=== PATIENT | female | born 1955 | race Caucasian/White ===

== ENCOUNTER 2016-08-31 14:44 | Emergency (ER) | payer OTHER, MEDICARE ==
[~2016-08-31] VITALS: Ht 172.7 cm; Wt 60.8 kg
[~2016-08-31 14:44] MED LIST: B12INJ IM; BENICAR20 MG PO; COUMADIN 10MG T10 M1 PO; COUMADIN 5 MG TA5 M1 PO; COUMADIN7.5 MG PO; CYANOCOBAL1000 MCG/1 IM; DIAZEPAM 5 MG5 M1 PO; DIGITEK125 MCG PO; ENDOCET 5-3251 EACH PO; EXCEDRIN CAPLE1 EACH PO; HYDROCODON-ACE1 EAC7; HYDROCODONE-AP1 EA10 PO; HYDROCODONE-AP1 EACH PO; LANOXIN 0.120.125 M1 PG; LEXAPRO 10 MG T10 M2 PO; LEXAPRO 10 MG T10 MG PO; LOPRESSOR25 PO; METOPROLOL SUCC25 M1 PO; NORCO 10-325 T1 EACH PO; NORCO 5-325 TA1 EACH PO; OXYBUTYNIN 5 MG5 M2 PO; OXYCODONE HCL20 M1 PO; OXYCODONE-ACET1 EAC2 PO; PEPCID40 MG PO; PERCOCET 10-321 EACH PO; PERCOCET 5-3251 EACH PO; PHENADOZ25 MG PO; PHENERGAN 25 MG25 M1 PO; PINDOLOL PO; PINDOLOL10 MG; PINDOLOL10 MG PO; PROTONIX40 M1 PO; PROTONIX40 M2 PO; RESTORIL15 MG PO; STOOL SOFTENER1 EAC2 PO; TOPROL XL25 MG PO; TOPROL XL50 MG; TOPROL XL50 MG PO; TRIAMTERENE-HC1 EAC1 PO; ZOLOFT; ZOLOFT50 MG PO
[2016-08-31] MEDS ORDERED: TRAZODONE HCL50 MG PO (14:53)
[2016-08-31 16:09] VITALS: BP 131/69
== END 2016-08-31 16:09 | disposition home or self-care (01) ==
LOC: ER 14:44
DX: S09.90XA Unspecified injury of head, initial encounter (principal); W20.8XXA Other cause of strike by thrown, projected or falling object, initial encounter; K21.9 Gastro-esophageal reflux disease without esophagitis; I48.91 Unspecified atrial fibrillation; I10 Essential (primary) hypertension; Z85.841 Personal history of malignant neoplasm of brain; Z90.710 Acquired absence of both cervix and uterus; Y93.89 Activity, other specified; Y92.89 Other specified places as the place of occurrence of the external cause; Y99.9 Unspecified external cause status

== ENCOUNTER → 2016-10-09 | Outpatient (CLI) | payer OTHER, MEDICARE ==
[~2016-10-09] MED LIST changes: +TRAZODONE HCL50 MG PO
== END ==
LOC: RAD 11:06
DX: Z12.31 Encounter for screening mammogram for malignant neoplasm of breast (principal)

== ENCOUNTER → 2016-11-23 | Outpatient (CLI) | payer OTHER, MEDICARE | LOC: MRI 12:37 | DX: R90.82 White matter disease, unspecified (principal) ==

== ENCOUNTER 2016-12-29 11:10 | Emergency (ER) | payer OTHER, MEDICARE ==
[~2016-12-29] VITALS: Ht 172.7 cm; Wt 59.0 kg
[2016-12-29 11:47] LABS: HEMATOCRIT 35.9 % (37.0-47.0); HEMOGLOBIN 12.2 gm/dL (12.0-15.0); MCH 33.9 pg (26.0-34.0); MCV 99.6 fL (80.0-100.0); RBC 3.6 mil/uL (4.20-5.00); RDW 13.1 % (10.5-14.5); WBC 3.2 thou/uL (4.0-11.0)
[2016-12-29 11:55] LABS: CALCIUM 8.5 mg/dL (8.5-10.1); CREATININE 0.7 mg/dL (0.6-1.0); POTASSIUM 4.9 mmol/L (3.5-5.1)
[2016-12-29 11:56] LABS: INR 1.7; PROTIME 16.8 Seconds (9.3-11.4)
[2016-12-29] MEDS ORDERED: ACETAMINOPHEN-1 EAC1 PO (12:43)
[2016-12-29 13:00] VITALS: BP 122/79
== END 2016-12-29 13:01 | disposition home or self-care (01) ==
LOC: ER 11:10
PROVIDERS: Emergency Medicine
DX: R51 Headache (principal); I48.91 Unspecified atrial fibrillation; K21.9 Gastro-esophageal reflux disease without esophagitis; I10 Essential (primary) hypertension; F10.99 Alcohol use, unspecified with unspecified alcohol-induced disorder; Z90.710 Acquired absence of both cervix and uterus; Z86.718 Personal history of other venous thrombosis and embolism; Z85.841 Personal history of malignant neoplasm of brain

== ENCOUNTER → 2017-03-13 | Outpatient (CLI) | payer OTHER, MEDICARE ==
[~2017-03-13] VITALS: Ht 172.7 cm; Wt 59.9 kg
[~2017-03-13] MED LIST changes: +ACETAMINOPHEN-1 EAC1 PO; +EXCEDRIN MIGRA1 EAC1 PO; +HYDROCODON-ACE1 EAC5 PO; +LEVSIN0.125 MG PO; +MILK OF MA2400 MG/10 PO; +MIRALAX17 GM PO; +MYRBETRIQ50 MG PO
--- NOTE | ~2017-03-13 | P ---
[facility] [place] [address] PROCEDURE REPORT Name: DEYANIRA MOJICA Room #: REG [facility]#: [id number] Admission: 03/13/17 Attend Phys: Owen Lopez Discharge: Date of : 55 Report #: [id number] THIS REPORT FOR: //name// CC: Owen Weinberg MD DATE OF SERVICE: 03/13/2017 PROCEDURE PERFORMED: Upper endoscopy with biopsies and esophageal dilation. HISTORY OF PRESENT ILLNESS: The patient is a 61-year-old female with dysphagia and gastroesophageal reflux disease. She takes Protonix on a daily basis. In general this controls her heartburn symptoms. She also has a history of anemia, hemoglobin was in the 9 range in June of this year with a low iron. Plan is for EGD and colonoscopy today. DESCRIPTION OF PROCEDURE: The risks and benefits of the procedure were explained to the patient, those risks including but not limited to bleeding, perforation, the risk of sedation. She understood these risks and gave informed consent. Sedation was given using propofol per anesthesia. Next, using a standard [employer] upper endoscope, the scope was placed in the patient's mouth and advanced under direct vision through the esophagus, stomach and into the second portion of the duodenum. The larynx was normal in appearance. The esophagus was normal throughout. The GE junction was normal. No evidence of stricture or narrowing. Upon entering the stomach, a small hiatal hernia was noted. Overall, the gastric mucosa was normal. The pylorus was normal and patent. The duodenal bulb, first and second portion were normal. Biopsies of the duodenum were obtained due to history of anemia. Next, the scope was then brought back up into the patient's stomach and a Savary guidewire was inserted through the scope, leaving the guidewire in place as the scope was then withdrawn. Next, a 48-[place] Savary dilation of the esophagus was performed without difficulty. Next, the wire and dilator removed. The scope was reintroduced into the patient's stomach. There was no evidence of mucosal tear after dilation. Next, the scope was then withdrawn and the procedure terminated. The patient tolerated the procedure well. IMPRESSION: 1. Small hiatal hernia. 2. Otherwise, normal upper endoscopy. RECOMMENDATIONS: 1. Await biopsy results. 2. Observe the patient status post dilation. 3. Continue daily proton pump inhibitor therapy. [address] [address] PROCEDURE REPORT Name: DEYANIRA MOJICA Room #: REG [facility]#: [id number] Admission: 03/13/17 Attend Phys: Owen Lopez Discharge: Date of : 55 Report #: [id number] Thank you for allowing me to participate in her care. By: [id number] [id number] Owen Lee MD /nt
--- NOTE | ~2017-03-13 | P ---
[facility] [place] [address] PROCEDURE REPORT Name: LISSETT LAMBERTDEYANIRA CARTY Room #: REG [facility]#: [id number] Admission: 03/13/17 Attend Phys: Owen Lopez Discharge: Date of : 55 Report #: [id number] THIS REPORT FOR: //name// CC: Owen Weinberg MD DATE OF SERVICE: 03/13/2017 PROCEDURE PERFORMED: Colonoscopy. HISTORY OF PRESENT ILLNESS: The patient is a 61-year-old female with dysphagia, underwent an upper endoscopy by myself just today with dilation. She also has a history of anemia. Her hemoglobin was in the 9 range in June with an iron deficiency. The patient states she had one episode of small amount of bright red blood per rectum, also has a family history of colon cancer in her father. Plan is for colonoscopy. DESCRIPTION OF PROCEDURE: The risks and benefits of the procedure were explained to the patient, those risks including but not limited to bleeding, perforation, the risk of sedation. She understood these risks and gave informed consent. Sedation was given using propofol per Anesthesia. Next, a digital rectal exam was initially performed, which was normal. Next, using a standard [employer] colonoscope, the scope was placed in the patient's anus and advanced under direct vision to the cecum. The overall prep was excellent. Cecum and ileocecal valve were normal in appearance. Ascending, transverse, descending colon were normal. A few scattered diverticula were noted in the sigmoid colon, no evidence of inflammation, otherwise normal. The rectal mucosa was normal. On retroflexion, small nonbleeding internal hemorrhoids were noted, otherwise normal colonoscopy. The scope was then withdrawn and the procedure terminated. The patient tolerated the procedure well. IMPRESSION: 1. The patient's episode of a small amount of bright red blood per rectum recently likely secondary to hemorrhoids, there was no bleeding on exam today. 2. Repeat colonoscopy in 5 years due to family history. 3. If anemia persists, would recommend oral iron and monitoring hemoglobin. Thank you for allowing me to participate in her care. By: [id number] Owen Lee MD /nt
[2017-03-13 08:34] LABS: INR 1.2; PROTIME 12.7 Seconds (9.3-11.4)
== END | disposition home or self-care (01) ==
LOC: GI 05:27
PROVIDERS: Specialist
DX: K57.30 Diverticulosis of large intestine without perforation or abscess without bleeding (principal); K64.8 Other hemorrhoids; R13.10 Dysphagia, unspecified; K21.9 Gastro-esophageal reflux disease without esophagitis; I10 Essential (primary) hypertension; I48.91 Unspecified atrial fibrillation; Z80.0 Family history of malignant neoplasm of digestive organs; Z87.891 Personal history of nicotine dependence; Z90.710 Acquired absence of both cervix and uterus; Z86.2 Personal history of diseases of the blood and blood-forming organs and certain disorders involving the immune mechanism; Z98.890 Other specified postprocedural states; Z85.841 Personal history of malignant neoplasm of brain; Z79.899 Other long term (current) drug therapy

== ENCOUNTER → 2018-03-18 | Outpatient (CLI) | payer OTHER, MEDICARE | END | disposition home or self-care (01) | LOC: GI 07:00 | DX: D64.9 Anemia, unspecified (principal); Z53.8 Procedure and treatment not carried out for other reasons; Z79.899 Other long term (current) drug therapy; Z79.01 Long term (current) use of anticoagulants; Z98.890 Other specified postprocedural states ==

== ENCOUNTER → 2018-04-04 | Outpatient (CLI) | payer OTHER, MEDICARE ==
[~2018-04-04] VITALS: Ht 172.7 cm; Wt 61.2 kg
--- NOTE | ~2018-04-04 | P ---
[facility] [place] [address] PROCEDURE REPORT Name: DEYANIRA GALEANA Room #: REG [facility]#: [id number] Admission: 04/04/18 Attend Phys: Owen Lopez Discharge: Date of : 55 Report #: [id number] THIS REPORT FOR: //name// CC: Owen Weinberg MD DATE OF SERVICE: 04/04/2018 PROCEDURE PERFORMED: Upper endoscopy with PillCam deployment. HISTORY OF PRESENT ILLNESS: The patient is a 63-year-old female with a history of iron deficiency anemia who underwent an EGD and colonoscopy by myself last February, which were essentially negative. She was seen in the office on 02/06/2018. Recent hemoglobin was 8.1 on 01/14/2018. At that time, iron level was 20. She is on Coumadin chronically. Her INR today is 2.2. She underwent Hemoccult testing of her stools, which were positive 2/3 recently and therefore discussed proceeding with an M2 capsule endoscopy. When the patient arrived last week, she stated that she did not think she would be able to swallow the pill on her own. Therefore, she is here for upper endoscopy with placement of a PillCam today. DESCRIPTION OF PROCEDURE: The risks and benefits of the procedure were explained to the patient, those risks including but not limited to bleeding, perforation, the risk of sedation. She understood these risks and gave informed consent. Sedation was given using propofol per anesthesia. Next, using a standard Olympus upper endoscope, the scope was placed in the patient's mouth and advanced under direct vision through the esophagus, stomach and into the second portion of the duodenum. The larynx was normal in appearance. The esophagus was normal throughout. The GE junction was normal. Once again, a small hiatal hernia was noted. In the gastric antrum, there was a mild gastritis with several small erosions. No evidence of bleeding. The pylorus was normal and patent. The duodenal bulb, first and second portion were all normal. At this point, the scope was then withdrawn and the deployment catheter was advanced through the channel and was connected with the capsule. Next, the capsule was advanced with the endoscope through her esophagus, stomach, and into the duodenal bulb. The capsule was deployed without difficulty. The scope was then withdrawn and the catheter was removed. As I advanced the scope through her oropharynx, there was a small amount of blood noted in the oropharynx, but this spontaneously stopped. I suspect this was from trauma from the capsule placing the capsule. The larynx was normal. The esophagus was normal. The stomach was normal. The capsule was in good position in the duodenal bulb. At this point, the scope was then withdrawn and the procedure terminated. The patient tolerated the procedure well. IMPRESSION: [facility] [address] [place] [address] PROCEDURE REPORT Name: LISSETTDEYANIRA Castro [id number] Admission: 04/04/18 Attend Phys: Owen Lopez Discharge: Date of : 55 Report #: [id number] 1. Gastritis with several erosions, no active bleeding. 2. Successful placement of a PillCam into the duodenum as described above. RECOMMENDATIONS: 1. We will await PillCam video results. 2. The patient is already on Protonix on a daily basis. If the PillCam is negative, may consider adding Carafate. Thank you for allowing me to participate in her care. <ELECTRONICALLY SIGNED> By: Owen Lee MD 04/04/18 [id number] Owen Lee MD /nt
[2018-04-04 09:08] LABS: INR 2.2; PROTIME 23.1 Seconds (9.3-11.4)
== END | disposition home or self-care (01) ==
LOC: GI 07:34
PROVIDERS: Specialist
DX: K29.70 Gastritis, unspecified, without bleeding (principal); I10 Essential (primary) hypertension; K21.9 Gastro-esophageal reflux disease without esophagitis; I48.91 Unspecified atrial fibrillation; Z87.19 Personal history of other diseases of the digestive system; Z87.891 Personal history of nicotine dependence; Z90.710 Acquired absence of both cervix and uterus; Z86.718 Personal history of other venous thrombosis and embolism; Z79.01 Long term (current) use of anticoagulants; Z98.890 Other specified postprocedural states; Z79.899 Other long term (current) drug therapy; Z85.841 Personal history of malignant neoplasm of brain
CPT/HCPCS: 62110; 62900

== ENCOUNTER → 2018-09-12 | Outpatient (CLI) | payer OTHER, MEDICARE | LOC: MRI 13:38 | DX: S09.90XS Unspecified injury of head, sequela (principal); R93.0 Abnormal findings on diagnostic imaging of skull and head, not elsewhere classified; X58.XXXS Exposure to other specified factors, sequela ==

== ENCOUNTER → 2020-05-18 | Outpatient (CLI) | payer OTHER, MEDICARE | LOC: HYPER 11:13 | PROVIDERS: ATTEND Emergency Medicine | DX: I83.028 Varicose veins of left lower extremity with ulcer other part of lower leg (principal); L97.812 Non-pressure chronic ulcer of other part of right lower leg with fat layer exposed; S80.11XA Contusion of right lower leg, initial encounter; R60.0 Localized edema; D68.2 Hereditary deficiency of other clotting factors; D68.51 Activated protein C resistance; G89.29 Other chronic pain; G40.909 Epilepsy, unspecified, not intractable, without status epilepticus; I87.2 Venous insufficiency (chronic) (peripheral); I48.91 Unspecified atrial fibrillation; I10 Essential (primary) hypertension; I73.00 Raynaud's syndrome without gangrene; I25.2 Old myocardial infarction; E78.5 Hyperlipidemia, unspecified; Z79.01 Long term (current) use of anticoagulants; Z87.891 Personal history of nicotine dependence; Z85.828 Personal history of other malignant neoplasm of skin; Z90.710 Acquired absence of both cervix and uterus; X58.XXXA Exposure to other specified factors, initial encounter; Y93.89 Activity, other specified; Y92.89 Other specified places as the place of occurrence of the external cause; Y99.8 Other external cause status ==

== ENCOUNTER → 2020-05-25 | Outpatient (CLI) | payer OTHER, MEDICARE | LOC: HYPER 13:54 | PROVIDERS: ATTEND Emergency Medicine | DX: I83.028 Varicose veins of left lower extremity with ulcer other part of lower leg (principal); L97.812 Non-pressure chronic ulcer of other part of right lower leg with fat layer exposed; S80.11XD Contusion of right lower leg, subsequent encounter; R60.0 Localized edema; D68.2 Hereditary deficiency of other clotting factors; D68.51 Activated protein C resistance; G89.29 Other chronic pain; G40.909 Epilepsy, unspecified, not intractable, without status epilepticus; I87.2 Venous insufficiency (chronic) (peripheral); I48.91 Unspecified atrial fibrillation; I10 Essential (primary) hypertension; I73.00 Raynaud's syndrome without gangrene; I25.2 Old myocardial infarction; E78.5 Hyperlipidemia, unspecified; Z79.01 Long term (current) use of anticoagulants; Z87.891 Personal history of nicotine dependence; Z85.828 Personal history of other malignant neoplasm of skin; Z90.710 Acquired absence of both cervix and uterus; X58.XXXD Exposure to other specified factors, subsequent encounter ==

== ENCOUNTER → 2020-06-01 | Outpatient (CLI) | payer OTHER, MEDICARE | LOC: HYPER 13:33 | PROVIDERS: ATTEND Emergency Medicine | DX: I83.028 Varicose veins of left lower extremity with ulcer other part of lower leg (principal); L97.812 Non-pressure chronic ulcer of other part of right lower leg with fat layer exposed; S80.11XD Contusion of right lower leg, subsequent encounter; R60.0 Localized edema; D68.2 Hereditary deficiency of other clotting factors; D68.51 Activated protein C resistance; G89.29 Other chronic pain; G40.909 Epilepsy, unspecified, not intractable, without status epilepticus; I87.2 Venous insufficiency (chronic) (peripheral); I48.91 Unspecified atrial fibrillation; I10 Essential (primary) hypertension; I73.00 Raynaud's syndrome without gangrene; I25.2 Old myocardial infarction; E78.5 Hyperlipidemia, unspecified; Z79.01 Long term (current) use of anticoagulants; Z87.891 Personal history of nicotine dependence; Z85.828 Personal history of other malignant neoplasm of skin; Z90.710 Acquired absence of both cervix and uterus; X58.XXXD Exposure to other specified factors, subsequent encounter ==

== ENCOUNTER → 2020-06-08 | Outpatient (CLI) | payer OTHER, MEDICARE | LOC: HYPER 11:29 | PROVIDERS: ATTEND Emergency Medicine | DX: I83.028 Varicose veins of left lower extremity with ulcer other part of lower leg (principal); L97.812 Non-pressure chronic ulcer of other part of right lower leg with fat layer exposed; S80.11XD Contusion of right lower leg, subsequent encounter; R60.0 Localized edema; D68.2 Hereditary deficiency of other clotting factors; D68.51 Activated protein C resistance; G89.29 Other chronic pain; G40.909 Epilepsy, unspecified, not intractable, without status epilepticus; I87.2 Venous insufficiency (chronic) (peripheral); I48.91 Unspecified atrial fibrillation; I10 Essential (primary) hypertension; I73.00 Raynaud's syndrome without gangrene; I25.2 Old myocardial infarction; E78.5 Hyperlipidemia, unspecified; Z79.01 Long term (current) use of anticoagulants; Z87.891 Personal history of nicotine dependence; Z85.828 Personal history of other malignant neoplasm of skin; Z90.710 Acquired absence of both cervix and uterus; X58.XXXD Exposure to other specified factors, subsequent encounter ==

== ENCOUNTER → 2020-06-15 | Outpatient (CLI) | payer OTHER, MEDICARE | LOC: HYPER 13:52 | PROVIDERS: ATTEND Emergency Medicine | DX: I83.028 Varicose veins of left lower extremity with ulcer other part of lower leg (principal); L97.812 Non-pressure chronic ulcer of other part of right lower leg with fat layer exposed; S80.11XD Contusion of right lower leg, subsequent encounter; R60.0 Localized edema; D68.2 Hereditary deficiency of other clotting factors; D68.51 Activated protein C resistance; G89.29 Other chronic pain; G40.909 Epilepsy, unspecified, not intractable, without status epilepticus; I87.2 Venous insufficiency (chronic) (peripheral); I48.91 Unspecified atrial fibrillation; I10 Essential (primary) hypertension; I73.00 Raynaud's syndrome without gangrene; I25.2 Old myocardial infarction; E78.5 Hyperlipidemia, unspecified; Z79.01 Long term (current) use of anticoagulants; Z87.891 Personal history of nicotine dependence; Z85.828 Personal history of other malignant neoplasm of skin; Z90.710 Acquired absence of both cervix and uterus; X58.XXXD Exposure to other specified factors, subsequent encounter ==

== ENCOUNTER → 2020-06-22 | Outpatient (CLI) | payer OTHER, MEDICARE | LOC: HYPER 14:09 | PROVIDERS: ATTEND Emergency Medicine | DX: I83.028 Varicose veins of left lower extremity with ulcer other part of lower leg (principal); L97.812 Non-pressure chronic ulcer of other part of right lower leg with fat layer exposed; S80.11XD Contusion of right lower leg, subsequent encounter; R60.0 Localized edema; D68.2 Hereditary deficiency of other clotting factors; D68.51 Activated protein C resistance; G89.29 Other chronic pain; G40.909 Epilepsy, unspecified, not intractable, without status epilepticus; I87.2 Venous insufficiency (chronic) (peripheral); I48.91 Unspecified atrial fibrillation; I10 Essential (primary) hypertension; I73.00 Raynaud's syndrome without gangrene; I25.2 Old myocardial infarction; E78.5 Hyperlipidemia, unspecified; Z79.01 Long term (current) use of anticoagulants; Z87.891 Personal history of nicotine dependence; Z85.828 Personal history of other malignant neoplasm of skin; X58.XXXD Exposure to other specified factors, subsequent encounter ==

== ENCOUNTER → 2020-06-29 | Outpatient (CLI) | payer OTHER, MEDICARE | LOC: HYPER 14:05 | PROVIDERS: ATTEND Emergency Medicine | DX: I83.018 Varicose veins of right lower extremity with ulcer other part of lower leg (principal); L97.812 Non-pressure chronic ulcer of other part of right lower leg with fat layer exposed; S80.11XD Contusion of right lower leg, subsequent encounter; R60.0 Localized edema; I87.2 Venous insufficiency (chronic) (peripheral); I10 Essential (primary) hypertension; I25.2 Old myocardial infarction; I73.00 Raynaud's syndrome without gangrene; I48.91 Unspecified atrial fibrillation; D68.2 Hereditary deficiency of other clotting factors; D68.51 Activated protein C resistance; G89.29 Other chronic pain; G40.909 Epilepsy, unspecified, not intractable, without status epilepticus; E78.5 Hyperlipidemia, unspecified; Z79.01 Long term (current) use of anticoagulants; Z87.891 Personal history of nicotine dependence; Z85.828 Personal history of other malignant neoplasm of skin; X58.XXXD Exposure to other specified factors, subsequent encounter ==

== ENCOUNTER → 2020-07-06 | Outpatient (CLI) | payer OTHER, MEDICARE | LOC: HYPER 13:26 | PROVIDERS: ATTEND Emergency Medicine | DX: S81.801D Unspecified open wound, right lower leg, subsequent encounter (principal); I83.018 Varicose veins of right lower extremity with ulcer other part of lower leg; L97.812 Non-pressure chronic ulcer of other part of right lower leg with fat layer exposed; I87.2 Venous insufficiency (chronic) (peripheral); R60.0 Localized edema; D68.2 Hereditary deficiency of other clotting factors; G89.29 Other chronic pain; G47.9 Sleep disorder, unspecified; I48.91 Unspecified atrial fibrillation; I10 Essential (primary) hypertension; I73.00 Raynaud's syndrome without gangrene; G40.909 Epilepsy, unspecified, not intractable, without status epilepticus; E78.5 Hyperlipidemia, unspecified; I25.2 Old myocardial infarction; E24.9 Cushing's syndrome, unspecified; D68.51 Activated protein C resistance; Z79.01 Long term (current) use of anticoagulants; Z87.891 Personal history of nicotine dependence; Z79.899 Other long term (current) drug therapy; X58.XXXD Exposure to other specified factors, subsequent encounter ==

== ENCOUNTER → 2020-11-25 | Outpatient (CLI) | payer OTHER, MEDICARE | LOC: SJCVCIMAG 08:54 | PROVIDERS: ATTEND Emergency Medicine | DX: I70.201 Unspecified atherosclerosis of native arteries of extremities, right leg (principal); M79.605 Pain in left leg; M79.604 Pain in right leg ==

== ENCOUNTER → 2020-12-07 | Outpatient (CLI) | payer OTHER, MEDICARE | LOC: BC 11:54 | PROVIDERS: ATTEND Internal Medicine | DX: N64.4 Mastodynia (principal); R92.8 Other abnormal and inconclusive findings on diagnostic imaging of breast ==

== ENCOUNTER → 2020-12-28 | Outpatient (CLI) | payer OTHER, MEDICARE | LOC: SJCVC 13:21 | PROVIDERS: ATTEND Nuclear Medicine Nuclear Cardiology | DX: I10 Essential (primary) hypertension (principal); E78.2 Mixed hyperlipidemia; D68.51 Activated protein C resistance; I48.91 Unspecified atrial fibrillation; Z95.828 Presence of other vascular implants and grafts; Z85.841 Personal history of malignant neoplasm of brain; Z79.01 Long term (current) use of anticoagulants; Z79.82 Long term (current) use of aspirin; Z79.899 Other long term (current) drug therapy; Z87.891 Personal history of nicotine dependence ==